=== PATIENT | male | born 1990 | race African-American/Black ===

== ENCOUNTER 2022-05-03 12:32 | Emergency (ER) | payer MEDICAID, MEDICARE, SELFPAY ==
[2022-05-03] MEDS ORDERED: Acetaminophen 500 MG TAB ONE (15:57)
== END 2022-05-03 16:02 | disposition home or self-care (01) ==
LOC: CSHERS 12:32
DX: J10.1 Influenza due to other identified influenza virus with other respiratory manifestations (principal); Z20.822 Contact with and (suspected) exposure to COVID-19
CPT/HCPCS: 87804; 99283; U0003; U0005